=== PATIENT | female | born 1980 | race Caucasian/White ===

== ENCOUNTER 2018-04-22 12:04 | Emergency (ER) | payer MEDICAID ==
[2018-04-22 12:14] VITALS: BP 127/85
[2018-04-22] MEDS ORDERED: IBUPROFEN 800 MG TABLET PO ONE (13:01)
[2018-04-22] MEDS ORDERED: ACETAMINOPHEN 325 MG TABLET PO ONE (13:01)
[2018-04-22] MEDS ORDERED: ONDANSETRON 4 MG TAB.RAPDIS PO ONE (13:01)
--- NOTE | 2018-04-22 13:03 | ER Document Report ---
ED Medical Screen (RME) - General Chief Complaint: Abscess Stated Complaint: ABSCESS/RIGHT ABDOMINAL AREA Time Seen by Provider: 04/22/18 12:58 TRAVEL OUTSIDE OF THE [place] IN LAST 30 DAYS: No - HPI Notes: 04/22/18 13:01 Patient states has a history of cyst thought she had an ovarian cyst yesterday taking Midol thinks it ruptured now sharpshooting pain right side of her abdomen with nausea. - Related Data Allergies/Adverse Reactions: amoxicillin [Amoxicillin] Allergy (Severe, Verified 06/08/15 17:32) Respiratory distress Penicillins Allergy (Severe, Verified 06/08/15 17:32) Respiratory distress morphine [Morphine] Allergy (Unknown, Verified 06/08/15 17:32) Past Medical History - Social History Frequency of alcohol use: Occasional Drug Abuse: None - Past Medical History Cardiac Medical History: Reports: Hx Heart Attack, Hx Hypercholesterolemia, Hx Hypertension, Hx Heart Murmur Denies: Hx Atrial Fibrillation, Hx Congestive Heart Failure Pulmonary Medical History: Reports: Hx Bronchitis Denies: Hx Asthma, Hx COPD, Hx Pneumonia, Hx Respiratory Failure, Hx Sleep Apnea, Hx Tuberculosis Neurological Medical History: Denies: Hx Seizures Renal/ Medical History: Reports: Hx Renal Insufficiency. Denies: Hx End Stage Renal Disease, Hx Kidney Stones, Hx Peritoneal Dialysis GI Medical History: Denies: Hx Gastroesophageal Reflux Disease, Hx Hiatal Hernia , Hx Pancreatitis, Hx Ulcer Musculoskeltal Medical History: Reports Hx Arthritis Psychiatric Medical History: Denies: Hx Bipolar Disorder, Hx Depression, Hx Schizophrenia Traumatic Medical History: Reports: Hx Fractures - left hand, left arm, right foot, left knee Past Surgical History: Reports: Hx Section, Hx Hysterectomy - partial, Hx Orthopedic Surgery - lt elbow repair, Hx Tonsillectomy. Denies: Hx Appendectomy, Hx Bowel Surgery, Hx Cholecystectomy, Hx Mastectomy, Hx Tubal Ligation - Immunizations Hx Diphtheria, Pertussis, Tetanus Vaccination: Yes Review of Systems - Review of Systems Gastrointestinal: Abdominal pain, Nausea Physical Exam - Vital signs Vitals: Temp Pulse Resp BP Pulse Ox 98.1 F 84 16 127/85 H 98 04/22/18 12:12 04/22/18 12:12 04/22/18 12:12 04/22/18 12:12 04/22/18 12:12 - Respiratory Respiratory status: No respiratory distress Chest status: Nontender Breath sounds: Normal Chest palpation: Normal - Abdominal Inspection: Morbidly Obese Course - Vital Signs Vital signs: Temp Pulse Resp BP Pulse Ox 98.1 F 84 16 127/85 H 98 04/22/18 12:12 04/22/18 12:12 04/22/18 12:12 04/22/18 12:12 04/22/18 12:12 Doctor's Discharge - Discharge Referrals: JOSE SCHNEIDER MD [Primary Care Provider] - Follow up as needed
[2018-04-22] MEDS ORDERED: KETOROLAC TROMETHAMINE 60 MG/2 ML SDV IM ONE (13:06)
--- NOTE | 2018-04-22 14:21 | ER Document Report ---
ED GI/ - General Chief Complaint: Abscess Stated Complaint: ABSCESS/RIGHT ABDOMINAL AREA Time Seen by Provider: 04/22/18 12:58 Mode of Arrival: Ambulatory Information source: Patient Notes: 37-year-old female with a history of polycystic ovarian disease is complaining of right lower adrenal abdominal pain that started when she started her period last night. She assumed that it was due to the cyst but she has never had it this bad. It is sharp and it is progressively gotten worse since yesterday. It is associated with nausea but no vomiting. No constipation or diarrhea. No fever or chills. Vaginal discharge with an odor. No dysuria. No new sexual partner. TRAVEL OUTSIDE OF THE [place] IN LAST 30 DAYS: No - Related Data Allergies/Adverse Reactions: amoxicillin [Amoxicillin] Allergy (Severe, Verified 06/08/15 17:32) Respiratory distress Penicillins Allergy (Severe, Verified 06/08/15 17:32) Respiratory distress morphine [Morphine] Allergy (Unknown, Verified 06/08/15 17:32) Past Medical History - General Information source: Patient - Social History Smoking Status: Current Every Day Smoker Frequency of alcohol use: Occasional Drug Abuse: None Lives with: Family Family History: Reviewed & Not Pertinent Patient has suicidal ideation: No Patient has homicidal ideation: No - Past Medical History Cardiac Medical History: Reports: Hx Heart Attack, Hx Hypercholesterolemia - last time it was checked it was normal, Hx Hypertension, Hx Heart Murmur Pulmonary Medical History: Reports: Hx Bronchitis Psychiatric Medical History: Reports: Other - learning disability Traumatic Medical History: Reports: Hx Fractures - left hand, left arm, right foot, left knee Past Surgical History: Reports: Hx Section, Hx Orthopedic Surgery - lt elbow repair - Immunizations Hx Diphtheria, Pertussis, Tetanus Vaccination: Yes Review of Systems - Review of Systems Constitutional: No symptoms reported EENT: No symptoms reported Cardiovascular: No symptoms reported Respiratory: No symptoms reported Gastrointestinal: See HPI Genitourinary: No symptoms reported Female Genitourinary: See HPI Musculoskeletal: No symptoms reported Skin: No symptoms reported Hematologic/Lymphatic: No symptoms reported Neurological/Psychological: No symptoms reported Physical Exam - Vital signs Vitals: Temp Pulse Resp BP Pulse Ox 98.1 F 84 16 127/85 H 98 04/22/18 12:12 04/22/18 12:12 04/22/18 12:12 04/22/18 12:12 04/22/18 12:12 Interpretation: Normal - General General appearance: Appears well, Alert Notes: obese - HEENT Head: Normocephalic, Atraumatic Eyes: Normal Conjunctiva: Normal Pupils: PERRL Neck: Supple - Respiratory Respiratory status: No respiratory distress Chest status: Nontender Breath sounds: Normal Chest palpation: Normal - Cardiovascular Rhythm: Regular Heart sounds: Normal auscultation Murmur: No - Abdominal Inspection: Normal Distension: No distension Bowel sounds: Normal Tenderness: Tender - RLQ abd and right more than left pelvis Organomegaly: No organomegaly - Back Back: Normal, Nontender. No: CVA tenderness - Extremities General upper extremity: Normal inspection, Nontender, Normal color, Normal ROM , Normal temperature General lower extremity: Normal inspection, Nontender, Normal color, Normal ROM , Normal temperature, Normal weight bearing. No: Caroline's sign - Neurological Neuro grossly intact: Yes Cognition: Normal Orientation: AAOx4 [place] Coma Scale Eye Opening: Spontaneous [place] Coma Scale Verbal: Oriented [place] Coma Scale Motor: Obeys Commands Leonardo Coma Scale Total: 15 Speech: Normal Motor strength normal: LUE, RUE, LLE, RLE Sensory: Normal - Psychological Associated symptoms: Normal affect, Normal mood - Skin Skin Temperature: Warm Skin Moisture: Dry Skin Color: Normal Skin irregularity: negative: Rash Course - Re-evaluation Re-evalutation: 04/22/18 14:54 pt got frustrated that I was trying to correct her past medical history in [facility]. She was already told by someone with glasses up front that she was "the one with the abscess and may need surgery" and she was greatly relieved. I told her it was important to get her record correct in [facility] since there was information in it that was not correct such as hysterectomy and she appreciated it. She states she has a learning disability. Something happened while I was not in the room and she states now wants to leave and get out does not want to see me anymore. I went back into the room with the nurse Loida RODRIGUEZ to discuss with her risks of leaving against medical advice, she then stated "I know all about, that I may if I walk out". I told her that I was worried about her appendix since the pain is in the right lower quadrant. She is not interested and states she will never come back to [place] unless she is brought here by ambulance. she signed the form and walked out. - Vital Signs Vital signs: Temp Pulse Resp BP Pulse Ox 98.1 F 84 16 127/85 H 98 04/22/18 12:12 04/22/18 12:12 04/22/18 12:12 04/22/18 12:12 04/22/18 12:12 Discharge - Discharge Clinical Impression: right lower quadrant abdominal pain Disposition: AGAINST MEDICAL ADVICE
[2018-04-22] MEDS ORDERED: RINGERS SOLUTION,LACTATED 1,000 ML IV ONE (14:44)
[2018-04-22 15:20] LABS: AMORPHOUS SEDIMENT,URINE 1+ /HPF; APPEARANCE,URINE TURBID; BILIRUBIN,URINE NEGATIVE (NEGATIVE); COLOR,URINE YELLOW; GLUCOSE, URINE NEGATIVE (NEGATIVE); KETONES,URINE NEGATIVE (NEGATIVE); LEUKOCYTE ESTERASE,URINE TRACE (NEGATIVE); NITRITE,URINE NEGATIVE (NEGATIVE); PROTEIN,URINE 100 mg/dL (NEGATIVE); URINE SPECIFIC GRAVITY 1.039
== END 2018-04-22 15:02 | disposition left against medical advice (07) ==
LOC: ER 12:04
DX: R10.31 Right lower quadrant pain (principal); Z53.21 Procedure and treatment not carried out due to patient leaving prior to being seen by health care provider; R40.2412 Glasgow coma scale score 13-15, at arrival to emergency department; E28.2 Polycystic ovarian syndrome; E78.00 Pure hypercholesterolemia, unspecified; Z88.1 Allergy status to other antibiotic agents; Z88.0 Allergy status to penicillin; F17.200 Nicotine dependence, unspecified, uncomplicated; I25.2 Old myocardial infarction
CPT/HCPCS: 99284; 81025; 81001; J3490; S0119